=== PATIENT | female | born 1975 | race Two or more races ===

== ENCOUNTER 2021-03-08 02:12 | Emergency (ER) | payer SELFPAY ==
[~2021-03-08] VITALS: Ht 154.9 cm; Wt 82.0 kg
[2021-03-08] MEDS ORDERED: DIPHENHYDRAMINE 50MG/ML VIAL IV ONE (04:00)
[2021-03-08] MEDS ORDERED: METOCLOPRAMIDE HCL 10MG/2ML VIAL IV ONE (04:00)
[2021-03-08 04:14] LABS: BASOPHILS % 0.7 % (0.0-2.0); EOSINOPHILS % 0.5 % (0.0-5.0); HEMATOCRIT. 42.6 % (36.0-48.0); HEMOGLOBIN. 14.6 g/dL (12.0-16.0); LYMPHOCYTES % 19.7 % (20.0-50.0); MEAN CORPUSCULAR HEMOGLOBIN 32.1 pg (28.0-32.0); MEAN CORPUSCULAR VOLUME 93.5 fL (81.0-99.0); MEAN PLATELET VOLUME 8.7 fl (7.4-10.4); MONOCYTES % 7.2 % (2.0-8.0); NEUTROPHILS % 71.9 % (40.0-76.0); PLATELET 164 x1000/uL (130-400); RED BLOOD CELL COUNT 4.55 mill/uL (4.2-5.4); RED CELL DISTRIBUTION WIDTH 15.6 % (11.6-14.6)
[2021-03-08 04:19] LABS: CHLORIDE 102 mEq/L (98-107)
[2021-03-08 04:24] LABS: HCG SCREEN NEGATIVE
[2021-03-08] MEDS ORDERED: IOHEXOL-350 100 ML BOTTLE ONE (06:25)
[2021-03-08] MEDS ORDERED: IBUP-2028 MT (06:45)
[2021-03-08 06:55] VITALS: BP 142/80
== END 2021-03-08 07:06 | disposition home or self-care (01) ==
LOC: ER 02:12
DX: R51.9 Headache, unspecified (principal); I10 Essential (primary) hypertension; E11.9 Type 2 diabetes mellitus without complications; E78.00 Pure hypercholesterolemia, unspecified; Z90.49 Acquired absence of other specified parts of digestive tract
CPT/HCPCS: 36415; 70450; 70496; 80053; 82962; 84703; 85025; 96374; 96375; 99285; J1200; J2765; Q9967